=== PATIENT | female | born 1985 ===

== ENCOUNTER 2020-11-27 11:36 | Observation (INO) ==
[2020-11-27 14:08] LABS: Venous Bicarbonate HCO3 24.1 mmol/L (24-28)
[2020-11-27 14:24] LABS: Hematocrit 30 % (35-47); Hemoglobin 9.9 g/dL (12.0-16.0); INR 1.13 (0.86-1.15); Mean Corpuscular HGB Conc 33 g/dL (31-36); Mean Corpuscular Hemoglobin 20 pg (27-31); Mean Corpuscular Volume 61 fL (80-97); Red Blood Count 4.94 10^6 /uL (3.70-4.87); Red Cell Distribution Width 14 % (10-15); White Blood Count 6.1 10^3/uL (3.5-10.8)
[2020-11-27 14:39] LABS: ALT 37 U/L (7-52); AST 62 U/L (13-39); Albumin 3.8 g/dL (3.2-5.2); Alkaline Phosphatase 71 U/L (35-149); Anion Gap 5 mmol/L (2-11); Blood Urea Nitrogen 12 mg/dL (6-24); C Reactive Protein 103.86 mg/L (<8.01); CO2 Carbon Dioxide 27 mmol/L (22-32); Calcium 9.3 mg/dL (8.6-10.3); Chloride 105 mmol/L (101-111); Globulin 3.7 g/dL (2-4); Glucose 106 mg/dL (70-100); Potassium 3.5 mmol/L (3.5-5.0); Sodium 137 mmol/L (135-145); Total Protein 7.5 g/dL (6.4-8.9)
[2020-11-27 15:06] LABS: Ferritin 282.9 ng/mL (11-307)
[2020-11-27 15:09] LABS: LDH 320 U/L (140-271)
[2020-11-27 15:17] LABS: ABS Eosinophils 0.1 10^3/ul (0-0.6); ABS Lymphocytes 0.7 10^3/ul (1.0-4.8); ABS Monocytes 0.5 10^3/ul (0-0.8); ABS Neutrophils 4.8 10^3/ul (1.5-7.7); Eosinophil % 1.3 %; Lymphocyte % 11.8 %; Mean Platelet Volume 11.1 fL (7.4-10.4); Nucleated Red Blood Cells % 0.1; Platelet Count 207 10^3/uL (150-450)
[2020-11-27] MEDS ORDERED: Dexamethasone IV 4 MG/ML VIAL 1 ml VIAL IV SLOW PU ONE ×2 (17:00)
[2020-11-27] MEDS ORDERED: NS 0.9% 1000 ml BAG 1,000 ML IV SCH (18:15)
[2020-11-27 18:33] LABS: HIV 4th Generation Nonreactive (Nonreactive)
[2020-11-27] MEDS ORDERED: Albuterol HFA INHALER 8 gm MDI INH ONE (19:06)
[2020-11-27] MEDS ORDERED: Albuterol HFA INHALER 8 gm MDI INH PRN (19:06)
[2020-11-27] MEDS ORDERED: NS 0.9% 50 ML 50 ML IV ONE (19:08)
[2020-11-27] MEDS ORDERED: CASIRIVI/IMDEVI-MAB 600-600 MG 10 ML in NS 0.9% 100 ml BAG 100 ML IV ONE (19:30)
[2020-11-27] MEDS ORDERED: Phenylephrine 0.5% NASAL BTL BOTH NARES ONE (20:45)
[2020-11-27] MEDS ORDERED: Phenylephrine 0.5% NASAL BTL BOTH NARES PRN (20:45)
[2020-11-27] MEDS ORDERED: Enoxaparin 40 MG/0.4 ML SYR SUBCUT ONE (21:00)
[2020-11-27] MEDS ORDERED: Enoxaparin 40 MG/0.4 ML SYR SUBCUT SCH (21:00)
[2020-11-27 21:09] LABS: % Iron Saturation 11 % (15-55); Iron 29 ug/dL (50-212); Total Iron Binding Capacity 258 mcg/dL (250-450); Transferrin 184 mg/dL (203-362); Unsaturated Iron Binding < 243 ug/dL
[2020-11-27 21:42] LABS: Vitamin B12 1091 pg/mL (180-914)
[2020-11-28 06:44] LABS: Albumin 3.9 g/dL (3.2-5.2); Calcium 9.5 mg/dL (8.6-10.3); Potassium 4.2 mmol/L (3.5-5.0); Total Bilirubin 1.2 mg/dL (0.2-1.0); Total Protein 7.9 g/dL (6.4-8.9)
[2020-11-28 07:29] LABS: Hematocrit 32 % (35-47); Hemoglobin 10.5 g/dL (12.0-16.0); Mean Corpuscular HGB Conc 33 g/dL (31-36); Mean Corpuscular Hemoglobin 21 pg (27-31); Mean Corpuscular Volume 62 fL (80-97); Red Cell Distribution Width 14 % (10-15); White Blood Count 6.1 10^3/uL (3.5-10.8)
[2020-11-28 08:29] LABS: ABS Lymphocytes 0.6 10^3/ul (1.0-4.8); ABS Monocytes 0.6 10^3/ul (0-0.8); ABS Neutrophils 4.9 10^3/ul (1.5-7.7); Lymphocyte % 9.8 %; Mean Platelet Volume 11.7 fL (7.4-10.4); Nucleated Red Blood Cells % 0.1; Platelet Count 250 10^3/uL (150-450)
[2020-11-28] MEDS ORDERED: Iohexol 350 (CONTRAST) 500 ML MDV IV ONE (10:22)
[2020-11-28 11:10] VITALS: BP 110/40
== END 2020-11-28 16:55 | disposition home or self-care (01) ==
LOC: ED 11:36 → MED 11:36 → SUATTDRO 18:16 → MED 20:12
PROVIDERS: ADMIT Internal Medicine; ATTEND Pediatrics